=== PATIENT | male | born 1975 | race Caucasian/White ===

== ENCOUNTER 2019-11-14 15:03 | Emergency (ER) | payer BC ==
--- NOTE | 2019-11-14 16:36 | EDM.PDOC ---
ED HPI GENERAL MEDICAL PROBLEM - General Chief Complaint: Upper Extremity Injury/Pain Stated Complaint: RT HAND IS LOCKING AND NOT MOVING Time Seen by Provider: 11/14/19 15:12 Source of Information: Reports: Patient, Family History Limitations: Reports: No Limitations - History of Present Illness INITIAL COMMENTS - FREE TEXT/NARRATIVE: The patient presents with right hand cramping. This started before arrival. It is better now. He has no trauma to his arm. He has been loosing weight intentionally lately. He has a history or of depression and anxiety and he has stopped his prozac a few months ago. He did not feel anxious before the cramping. He has no fever, chills, cough, congestion, runny nose, abdominal pain, nausea or vomiting. Onset: Sudden Duration: Minutes: Location: Reports: Upper Extremity, Right Severity: Moderate Improves with: Reports: None Worsens with: Reports: None Associated Symptoms: Reports: No Other Symptoms - Related Data Allergies Allergy/AdvReac Type Severity Reaction Status Date / Time No Known Allergies Allergy Verified 11/14/19 15:17 Home Meds: Home Meds Metoprolol Succinate [Toprol XL] 12.5 mg PO DAILY 11/14/19 [History] Past Medical History Cardiovascular History: Reports: Hypertension - Past Surgical History Neurological Surgical History: Reports: Lumbar Spine Social & Family History - Family History Family Medical History: Noncontributory - Tobacco Use Smoking Status *Q: Never Smoker Second Hand Smoke Exposure: No Review of Systems - Review of Systems Review Of Systems: See Below Constitutional: Reports: No Symptoms Eyes: Reports: No Symptoms Ears: Reports: No Symptoms Nose: Reports: No Symptoms Mouth/Throat: Reports: No Symptoms Respiratory: Reports: No Symptoms Cardiovascular: Reports: No Symptoms GI/Abdominal: Reports: No Symptoms Genitourinary: Reports: No Symptoms Musculoskeletal: Reports: Other (Right arm cramping) ED EXAM, GENERAL - Physical Exam Exam: See Below Exam Limited By: No Limitations General Appearance: Alert, No Apparent Distress Ears: Normal External Exam Nose: Normal Inspection Head: Atraumatic, Normocephalic Neck: Normal Inspection Respiratory/Chest: No Respiratory Distress, Lungs Clear, Normal Breath Sounds Cardiovascular: Regular Rate, Rhythm, No Edema, No Murmur GI/Abdominal: Soft, Non-Tender, No Organomegaly, No Mass Extremities: Other (No pain upon palpation to the right arm. Good sensation and pulses distally. He can spread his fingers, touch thumb to little finger and bend his wrist.) Course - Vital Signs Last Recorded V/S: Last Vital Signs Temp 98.6 F 11/14/19 15:13 Pulse 72 11/14/19 15:13 Resp 20 11/14/19 15:13 BP 186/104 H 11/14/19 15:13 Pulse Ox - Orders/Labs/Meds Labs: Laboratory Tests 11/14/19 Range/Units 15:40 Sodium 138 (136-145) mEq/L Potassium 4.0 (3.5-5.1) mEq/L Chloride 100 (98-107) mEq/L Carbon Dioxide 25 (21-32) mEq/L Anion Gap 17.0 H (5-15) BUN 20 H (7-18) mg/dL Creatinine 1.3 (0.7-1.3) mg/dL Est Cr Clr Drug Dosing 80.42 mL/min Estimated GFR (MDRD) > 60 (>60) mL/min BUN/Creatinine Ratio 15.4 (14-18) Glucose 121 H (74-106) mg/dL Calcium 9.1 (8.5-10.1) mg/dL Magnesium 2.2 (1.8-2.4) mg/dl Total Bilirubin 0.6 (0.2-1.0) mg/dL AST 25 (15-37) U/L ALT 42 (16-63) U/L Alkaline Phosphatase 94 (46-116) U/L Total Protein 8.3 H (6.4-8.2) g/dl Albumin 4.1 (3.4-5.0) g/dl Globulin 4.2 gm/dL Albumin/Globulin Ratio 1.0 (1-2) - Re-Assessments/Exams Free Text/Narrative Re-Assessment/Exam: 11/14/19 16:33 I checked a CMP and magnesium and that all looked good. 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 He does not want a splint or any medications. Departure - Departure Time of Disposition: 16:35 Disposition: Home, Self-Care 01 Condition: Good Clinical Impression: Hand cramps - Discharge Information *PRESCRIPTION DRUG MONITORING PROGRAM REVIEWED*: Not Applicable *COPY OF PRESCRIPTION DRUG MONITORING REPORT IN PATIENT LEEROY: Not Applicable Referrals: PCP,None [Primary Care Provider] - Nerissa Munguia PA-C [Physician Bench Machine Operator] - 1 Week Additional Instructions: Drink plenty of water. Please return if you are worse. Sepsis Event Note - Evaluation Sepsis Screening Result: No Definite Risk - Focused Exam Vital Signs: Vital Signs Temp Pulse Resp BP 11/14/19 15:13 98.6 F 72 20 186/104 H Date Exam was Performed: 11/14/19 Time Exam was Performed: 16:29
== END 2019-11-14 16:53 | disposition home or self-care (01) ==
LOC: JD.ED 15:03
DX: R25.2 Cramp and spasm (principal); I10 Essential (primary) hypertension; Z79.899 Other long term (current) drug therapy
CPT/HCPCS: 36415; 80053; 83735; 99282; 99283

== ENCOUNTER 2019-12-19 18:14 | Emergency (ER) | payer BC ==
[2019-12-19] MEDS ORDERED: LORazepam 0.5 MG Tab PO ONE (19:23)
--- NOTE | 2019-12-19 20:39 | EDM.PDOC ---
ED HPI GENERAL MEDICAL PROBLEM - General Chief Complaint: General Stated Complaint: DIZZINESS/BLOOD PRESSURE PROBLEMS Time Seen by Provider: 12/19/19 18:42 Source of Information: Reports: Patient History Limitations: Reports: No Limitations - History of Present Illness INITIAL COMMENTS - FREE TEXT/NARRATIVE: Patient is a 44-year-old male who presents with complaints of lightheadedness, headache, and weakness following his cardio workout this afternoon. Symptoms had resolved at the time of the exam. Patient states that this has been an ongoing issue for him and that he is in the process of having a work-up done by his primary care provider. He is currently wearing a Holter monitor. Patient states that yesterday his primary care provider increased his blood pressure medications from metoprolol XL 25 mg daily to metoprolol 25 mg twice daily in addition to losartan 25 mg daily. Patient states that he took his losartan around 2:00 this afternoon and shortly thereafter proceeded to do a cardio workout. He became lightheaded and fell like he was having muscle spasms in his chest. He also had blurry vision and a headache. Patient's primary care provider has done numerous studies including catecholamines, CMP, CBC, CK, cholesterol, and these of all been found to be normal. Up to this point he has not had his thyroid done. Patient does have a history of anxiety, however states he has not used his Ativan in a number of years. He does complain of feeling anxious and jittery at this time. Denies any chest pain, shortness of breath, or diaphoresis. - Related Data Allergies Allergy/AdvReac Type Severity Reaction Status Date / Time levofloxacin [From Levaquin] Allergy Hypertensio Verified 12/19/19 18:53 n Home Meds: Home Meds LORazepam [Ativan] 1 mg PO Q8H PRN #20 tab 11/14/19 [Rx] Metoprolol Succinate [Toprol XL] 25 mg PO BID 11/14/19 [History] Past Medical History Cardiovascular History: Reports: Hypertension Psychiatric History: Reports: Anxiety - Infectious Disease History Infectious Disease History: Reports: Chicken Pox - Past Surgical History Neurological Surgical History: Reports: Lumbar Spine Social & Family History - Family History Family Medical History: Noncontributory - Tobacco Use Smoking Status *Q: Never Smoker Second Hand Smoke Exposure: No - Caffeine Use Caffeine Use: Reports: None - Recreational Drug Use Recreational Drug Use: No ED ROS GENERAL - Review of Systems Review Of Systems: Comprehensive ROS is negative, except as noted in HPI. ED EXAM, GENERAL - Physical Exam Exam: See Below Exam Limited By: No Limitations General Appearance: Alert, WD/WN, No Apparent Distress Respiratory/Chest: No Respiratory Distress, Lungs Clear, Normal Breath Sounds, No Accessory Muscle Use, Chest Non-Tender Cardiovascular: Normal Peripheral Pulses, Regular Rate, Rhythm, No Edema, No Gallop, No JVD, No Murmur, No Rub GI/Abdominal: Normal Bowel Sounds, Soft, Non-Tender, No Organomegaly, No Distention, No Abnormal Bruit, No Mass Neurological: Alert, Oriented, CN II-XII Intact, Normal Cognition, Normal Gait, Normal Reflexes, No Motor/Sensory Deficits Psychiatric: Normal Affect, Normal Mood Skin Exam: Warm, Dry, Intact, Normal Color, No Rash EKG INTERPRETATION EKG Date: 12/19/19 Time: 17:45 Rhythm: NSR Rate (Beats/Min): 60 [place]: Normal P-Wave: Present QRS: Normal ST-T: Normal QT: Normal Comparison: NA - No Prior EKG Course - Vital Signs Last Recorded V/S: Last Vital Signs Temp 99.0 F 12/19/19 18:44 Pulse 76 12/19/19 18:44 Resp 20 12/19/19 18:44 BP 151/94 H 12/19/19 18:44 Pulse Ox 95 12/19/19 18:44 - Orders/Labs/Meds Orders: Active Orders 24 hr Category Date Time Status EKG Documentation Completion [RC] STAT Care 12/19/19 19:23 Active Chest 2V [CR] Stat Exams 12/19/19 19:21 Taken Labs: Laboratory Tests 12/19/19 12/19/19 12/19/19 Range/Units 19:35 19:40 19:40 WBC 11.33 H (4.23-9.07) K/mm3 RBC 5.01 (4.63-6.08) M/mm3 Hgb 15.8 (13.7-17.5) gm/dl Hct 47.8 (40.1-51.0) % MCV 95.4 H (79.0-92.2) fl MCH 31.5 (25.7-32.2) pg MCHC 33.1 (32.2-35.5) g/dl RDW Std Deviation 43.9 (35.1-43.9) fL Plt Count 254 (163-337) K/mm3 MPV 10.6 (9.4-12.3) fl Neut % (Auto) 71.6 H (34.0-67.9) % Lymph % (Auto) 21.8 (21.8-53.1) % [place] % (Auto) 5.6 (5.3-12.2) % Eos % (Auto) 0.4 L (0.8-7.0) Baso % (Auto) 0.3 (0.1-1.2) % Neut # (Auto) 8.12 H (1.78-5.38) K/mm3 Lymph # (Auto) 2.47 (1.32-3.57) K/mm3 [place] # (Auto) 0.63 (0.30-0.82) K/mm3 Eos # (Auto) 0.05 (0.04-0.54) K/mm3 Baso # (Auto) 0.03 (0.01-0.08) K/mm3 Manual Slide Review Abnormal smear Sodium 140 (136-145) mEq/L Potassium 4.2 (3.5-5.1) mEq/L Chloride 103 (98-107) mEq/L Carbon Dioxide 27 (21-32) mEq/L Anion Gap 14.2 (5-15) BUN 18 (7-18) mg/dL Creatinine 1.2 (0.7-1.3) mg/dL Est Cr Clr Drug Dosing 84.54 mL/min Estimated GFR (MDRD) > 60 (>60) mL/min BUN/Creatinine Ratio 15.0 (14-18) Glucose 106 (74-106) mg/dL Calcium 9.7 (8.5-10.1) mg/dL Total Bilirubin 0.6 (0.2-1.0) mg/dL AST 22 (15-37) U/L ALT 36 (16-63) U/L Alkaline Phosphatase 93 (46-116) U/L Troponin I < 0.017 (0.00-0.056) ng/mL Total Protein 8.4 H (6.4-8.2) g/dl Albumin 4.2 (3.4-5.0) g/dl Globulin 4.2 gm/dL Albumin/Globulin Ratio 1.0 (1-2) Free T4 1.01 (0.76-1.46) ng/dL TSH 3rd Generation 2.362 (0.358-3.74) uIU/mL Urine Color Light yellow (Yellow) Urine Appearance Clear (Clear) Urine pH 6.5 (5.0-8.0) Ur Specific [place] 1.015 (1.005-1.030) Urine Protein Negative (Negative) Urine Glucose (UA) Negative (Negative) Urine Ketones Negative (Negative) Urine Occult Blood Negative (Negative) Urine Nitrite Negative (Negative) Urine Bilirubin Negative (Negative) Urine Urobilinogen 0.2 (0.2-1.0) Ur Leukocyte Esterase Negative (Negative) Urine RBC Not seen (0-5) /hpf Urine WBC Not seen (0-5) /hpf Ur Squamous Epith Cells Not seen (0-5) /hpf Urine Bacteria Rare (FEW) /hpf Urine Mucus Not seen (FEW) /hpf Meds: Medications Discontinued Medications Generic Name Dose Route Start Last Admin Trade Name Satishq PRN Reason Stop Dose Admin Lorazepam 0.5 mg 12/19/19 19:23 12/19/19 19:36 Ativan PO 12/19/19 19:24 0.5 mg ONETIME ONE Administration - Re-Assessments/Exams Free Text/Narrative Re-Assessment/Exam: 12/19/19 20:39 Patient's work-up was grossly unremarkable. EKG was negative for any acute changes, chest x-ray was within normal limits, hematology was normal. TSH and free T4 were normal. Discussed with patient's that today's symptoms may be related to his increase in blood pressure medications. I did recommend that he avoid strenuous exercise at least for the next couple days until his body is acclimated to the blood pressures. Patient does have a follow-up appoint with his primary care provider on Sunday. He was also wearing the Holter monitor during this episode and he did push the event button. Discharge instructions as documented. Departure - Departure Time of Disposition: 20:40 Disposition: Home, Self-Care 01 Condition: Fair Clinical Impression: Dizziness, Weakness - Discharge Information *PRESCRIPTION DRUG MONITORING PROGRAM REVIEWED*: No *COPY OF PRESCRIPTION DRUG MONITORING REPORT IN PATIENT LEEROY: No Instructions: Fatigue Referrals: Will Lombardi MD [Primary Care Provider] - Forms: ED Department Discharge Additional Instructions: You were seen in the emergency department today for an episode of weakness, dizziness, and headache that occurred after exercise today. Your work-up included blood work, an EKG of your heart, chest x-ray, and urinalysis. The results of these testings were all found to be normal. Your thyroid was checked today and was found to be normal. As we discussed, your symptoms may be related to the recent increase in your blood pressure medications and that your body has not acclimated to these changes at this point. I would recommend that you refrain from strenuous exercise at least for the next few days. Recommend that you keep your follow-up appointment with your primary care provider on Sunday. If you should experience any new or worsening symptoms of concern, please do not hesitate to return to the emergency department. Sepsis Event Note - Evaluation Sepsis Screening Result: No Definite Risk - Focused Exam Vital Signs: Vital Signs Temp Pulse Resp BP Pulse Ox 12/19/19 18:44 99.0 F 76 20 151/94 H 95 Date Exam was Performed: 12/19/19 Time Exam was Performed: 22:25 - My Orders Last 24 Hours: My Active Orders 12/19/19 19:21 Chest 2V [CR] Stat 12/19/19 19:23 EKG Documentation Completion [RC] STAT - Assessment/Plan Last 24 Hours: My Active Orders 12/19/19 19:21 Chest 2V [CR] Stat 12/19/19 19:23 EKG Documentation Completion [RC] STAT
--- NOTE | 2019-12-20 14:05 | CR ---
Chest: 2 views of the chest were obtained. Comparison: No prior chest imaging. Heart size and mediastinum are within normal limits. Lungs show no acute parenchymal change. Bony structures are within normal limits for the patient's age. Impression: 1. Nothing acute is identified on 2 view chest x-ray. Diagnostic code #2 This report was dictated in MDT
== END 2019-12-19 20:45 | disposition home or self-care (01) ==
LOC: JD.ED 18:14
DX: R42 Dizziness and giddiness (principal); R53.1 Weakness; R51 Headache; I10 Essential (primary) hypertension; Z88.1 Allergy status to other antibiotic agents
CPT/HCPCS: 36415; 71046; 80053; 81001; 84439; 84443; 84484; 85025; 93005; 99285; A9270; 93010; 99283